=== PATIENT | male | born 1950 | race Caucasian/White ===

== ENCOUNTER 2023-10-05 04:12 | Emergency (ER) | payer MEDICARE, OTHER ==
[~2023-10-05] VITALS: Ht 172.7 cm; Wt 68.1 kg
[2023-10-05 04:30] VITALS: PULSE 104; RESP 23; O2SAT 96
[2023-10-05] MEDS ORDERED: guaiFENesin-DM 100/10mg/5ml SYR PO ONE ×2 (05:00→09:45)
[2023-10-05] MEDS ORDERED: AZITHROMYCIN 500MG/ 250ML 250 ML IV ONE (05:00)
[2023-10-05] MEDS ORDERED: methylPREDNISolone SOD SUCC 125 MG/2 ML VL IV ONE (05:00)
[2023-10-05] MEDS ORDERED: SODIUM CHLORIDE 0.9% 2,050 ML IV ONE (05:00)
[2023-10-05] MEDS ORDERED: ACETAMINOPHEN 325 MG TAB PO PRN (05:00)
[2023-10-05] MEDS ORDERED: ASPirin 81 mg TAB PO ONE (05:00)
[2023-10-05] MEDS ORDERED: ALBUTEROL SULF 2.5 MG/0.5ML(0.5%) NEB SOLN NEB ONE (05:00)
[2023-10-05] MEDS ORDERED: IPRATROPIUM BROM 0.5 MG/2.5ML INH SOL NEB ONE (05:00)
[2023-10-05] MEDS ORDERED: PANTOPRAZOLE 40 MG/10 ML VIAL INJ IV ONE (05:00)
[2023-10-05] MEDS ORDERED: TERBUTALINE SULFATE 1 MG/ML 1ML VIAL SC ONE (05:00)
[2023-10-05 05:05] LABS: Basophils # (auto) 0.1 10 ^3/uL (0-0.2); Basophils % (auto) 1.2 % (0.0-2.0); Eosinophils # (auto) 0.6 10 ^3/uL (0-0.8); Eosinophils % (auto) 9.8 % (0.0-7.0); Hemoglobin 14.6 g/dL (13.5-17.5); Lymphocytes # (auto) 2.6 10 ^3/uL (0.4-5.4); Lymphocytes % (auto) 41.9 % (10.0-50.0); Mean Corpuscular Hemoglobin 30.6 pg (28.0-32.0); Mean Corpuscular Hgb Conc. 33.2 g/dL (32.0-36.0); Mean Corpuscular Volume 92.2 fL (80.0-100.0); Monocytes # (auto) 0.4 10 ^3/uL (0-1.3); Monocytes % (auto) 6.7 % (0.0-12.0); Neutrophils # (auto) 2.5 10 ^3/uL (1.6-8.6); Neutrophils % (auto) 40.4 % (37.0-80.0); Nucleated Red Blood Cells % 0.4 %; Red Blood Cells 4.77 10^6/uL (4.5-5.90); Red Cell Distribution Width 13.6 % (11.8-14.3); White Blood Cell 6.1 10^3/uL (4.4-10.8)
[2023-10-05 05:22] LABS: Albumin 4.7 g/dL (3.2-4.8); Alkaline Phosphatase 65 U/L (46-116); Anion Gap 6 (5-15); Aspartate Aminotransferase 12 U/L (13-40); BUN/Creatinine Ratio 12.4 (10.0-20.0); Blood Urea Nitrogen 14 mg/dL (9-23); Calcium 9.5 mg/dL (8.7-10.4); Carbon Dioxide 29 mmol/L (20-30); Chloride 104 mmol/L (98-107); Glucose 141 mg/dL (74-106); Potassium 3.9 mmol/L (3.5-5.1); Sodium 139 mmol/L (136-145)
[2023-10-05 05:23] LABS: Bilirubin, Total 0.7 mg/dL (0.2-1.0); Total Protein 6.9 g/dL (5.7-8.2)
[2023-10-05 05:33] LABS: INR 1.12 (0.9-1.15); Partial Thromboplastin Time 27.2 SEC (24.5-34.5); Prothrombin Time 11.7 sec (9.3-11.8)
[2023-10-05 05:38] LABS: Base Excess -1.1 mmol/L (-2.0-2.0)
[2023-10-05] MEDS ORDERED: cefTRIAXone 1GM/50ML D5W 50 ML IV SCH (06:00)
[2023-10-05] MEDS: MAGNESIUM SULFATE 1GM/100ML 100 ML IV SCH ×2 (06:14→07:06)
[2023-10-05 06:18] LABS: Alanine Aminotransferase 11 U/L (7-40)
[2023-10-05 08:47] LABS: COVID19 ANTIGEN SOFIA FIA NEGATIVE (NEGATIVE); Rapid Influenza A Negative (Negative); Rapid Influenza B Negative (Negative)
[2023-10-05 08:55] VITALS: PULSE 102; RESP 16; O2SAT 92
[2023-10-05] MEDS ORDERED: ALBUAER3 IN (09:37)
[2023-10-05] MEDS ORDERED: PRED20TA2 PO (09:37)
[2023-10-05] MEDS ORDERED: DEXT1SYP9 PO (09:37)
[2023-10-05] MEDS ORDERED: LEVO500T91 PO (09:37)
[2023-10-05] MEDS ORDERED: IPR002IS NEB (09:37)
[2023-10-05] MEDS ORDERED: levoFLOXacin 500 MG TAB PO ONE (09:45)
[2023-10-05] MEDS ORDERED: predniSONE 20 MG TAB PO ONE (09:45)
[2023-10-05] MEDS ORDERED: IOHEXOL 350 MG/ML 100ML IJ ONE (10:21)
[2023-10-05] MEDS ORDERED: ALBUTEROL SULF 2.5 MG/0.5ML(0.5%) NEB SOLN NEB PRN (11:00)
[2023-10-05 11:03] VITALS: BP 102/84; PULSE 87; RESP 18; TEMP 98.6; O2SAT 92
[2023-10-05 11:25] LABS: Urine WBC None Seen /hpf (0 - 3)
[2023-10-05 11:40] LABS: Urine Bacteria NONE SEEN /hpf (None Seen); Urine Blood Negative /uL (Negative); Urine Clarity Clear (Clear); Urine Color Colorless (Yellow); Urine Protein, UAD Negative (Negative); Urine Specific Gravity 1.006 (1.001-1.035); Urine Urobilinogen Normal (Negative)
[2023-10-05 16:36] VITALS: BP 111/60; PULSE 95; RESP 17; O2SAT 92
== END 2023-10-05 16:45 | disposition home or self-care (01) ==
LOC: EDBD 04:12 → ER 04:12
DX: J44.1 Chronic obstructive pulmonary disease with (acute) exacerbation (principal); J96.01 Acute respiratory failure with hypoxia; R07.89 Other chest pain; Z20.822 Contact with and (suspected) exposure to COVID-19
CPT/HCPCS: 36415; 36600; 71045; 71275; 80053; 81001; 82805; 83605; 83735; 83880; 84443; 84484; 85025; 85610; 85730; 87040; 87426; 87804; 93005; 94640; 96361; 96365; 96366; 96368; 96372; 96375; 99285; C9113; J0456; J0696; J2930; J3105; J3475; J7512; J7644; Q9967